=== PATIENT | male | born 1970 | race Caucasian/White ===

== ENCOUNTER 2017-06-12 14:37 | Observation (INO) | payer OTHER ==
--- NOTE | 2017-06-12 14:58 | EDPHY ---
H & P Time Seen by Provider: 06/12/17 14:54 HPI/ROS: Chief complaint. Low blood pressure, dizzy, shortness of breath, muscle spasm HPI. 46-year-old male presents with complaint of not feeling well since last evening. He had some nausea and some lightheadedness last evening. It went away and he slept well during the night. He had similar symptoms including lightheadedness on standing today. He went to urgent care and his blood pressure was 90/65 and was referred to the emergency department. He notes he has slight shortness of breath without cough. Slight URI symptoms with runny nose and slight sore throat for the past several days. Denies chest discomfort. Yesterday he had mid abdominal bloating but otherwise denies pain. No pain or discomfort today. He has been constipated. Denies fever. No urinary symptoms. No recent travel or known exposures. He also has some muscle achiness ROS Constitutional. no fever/chills, no weakness Eyes. no problems with vision ENT. Sore throat and upper respiratory symptoms Cardiovascular. no chest pain Respiratory. Slight shortness of breath but no cough Abdominal. Bloating yesterday with nausea but no vomiting or diarrhea . no problems urinating MS. Muscle aches Skin. no rash Lymph. no swollen glands Neuro. Lightheadedness on standing. Past Medical/Surgical History: Past medical history significant for recovering alcoholic, PTSD, anxiety, atrial fibrillation with ablation Social History: , nonsmoker, no alcohol Smoking Status: Former smoker Physical Exam: General Appearance: Alert well-developed male mild distress vital signs are stable. Initial blood pressure 113/85. Afebrile Eyes: Pupils equal and round no pallor or injection. ENT, mucous membranes are moist. Pharynx without injection. Tympanic membranes are normal. Respiratory: There are no retractions, lungs are clear to auscultation. Cardiovascular: Regular rate and rhythm. Gastrointestinal: Abdomen is soft and nontender, no masses, bowel sounds normal. Neurological: Awake and alert, sensory and motor exams grossly normal. Skin: Warm and dry, no rashes. Musculoskeletal: Neck is supple nontender. Extremities symmetrical, full range of motion. Psychiatric: Patient is oriented X 3, there is no agitation. Constitutional: Initial Vital Signs Temperature (C) 36.9 C 06/12/17 14:44 Heart Rate 72 06/12/17 14:44 Respiratory Rate 18 06/12/17 14:44 Blood Pressure 113/85 H 06/12/17 14:44 O2 Sat (%) 96 06/12/17 14:44 O2 Delivery Mode Room Air Allergies/Adverse Reactions: diphenhydramine HCl [From Benadryl] Allergy (Verified 10/26/11 11:48) metoprolol Allergy (Verified 10/26/11 11:48) Home Medications: Medication Instructions Recorded Cephalexin [Keflex] 500 mg PO QID 10 Days cap 10/26/11 FLUoxetine HCL [Fluoxetine DR 90mg] 25 mg PO 10/26/11 LORazepam [Ativan 1 mg (RX)] 1 mg PO 10/26/11 oxyCODONE/APAP 5/325 [Percocet 1 tab PO Q6 #10 tab 10/26/11 5/325] Amoxicillin/Clavulanate Pot 875 mg PO BID #20 tab 03/22/13 [Augmentin 875 MG TAB (RX)] FLUoxetine [Prozac] 0 mg PO DAILY 03/22/13 Hydrocodone/APAP 5/325 [[place] 1 - 2 each PO Q4-6PRN PRN #20 tab 03/22/13 5/325] LORazepam [Ativan 1 mg (RX)] 0 mg PO 03/22/13 Hydrocodone/APAP 5/325 [[place] 1 - 2 tab PO Q6H PRN #14 tab 01/19/16 5/325 (*)] Medical Decision Making - Diagnostics EKG Interpretation: EKG interpreted by me shows normal sinus rhythm with normal interval and axis. QRS is normal there is no significant ST elevation or depression. There is no arrhythmia. The rate is 62 Imaging Results: Imaging Impressions Abdomen X-Ray 06/12/17 15:32 Impression: 1. Nonspecific bowel gas pattern. 2. Lower lumbar degenerative disk disease. Chest X-Ray 06/12/17 15:32 Impression: Subtle fullness in the region of the ascending thoracic aorta and aortic arch, consider CT chest with contrast to exclude aneurysm. Results discussed with Dr. Dennys Ceron at 4:20 PM. Chest/Thorax CTA 06/12/17 16:26 Impression: 1. Small volume left upper lobe pulmonary embolus. 2. Mild aneurysmal dilatation of the ascending thoracic aorta up to 4.0 cm at the level of the right pulmonary artery. Results called to Dr. Dennys Ceron at 6:00 PM. One-view chest reviewed by me and discussed with Dr. López shows that there is fullness to the aortic knob, right tracheal displacement and fullness to the right hilum. This is different than chest x-ray in 2006. Concern is aortic aneurysm Upright abdomen shows no evidence for free air or air-fluid levelshere is moderate constipation present CT shows left upper lobe filling defect consistent with PE. He also has a 4 cm aneurysmal dilatation of the base of the aorta. CT reviewed by me and discussed with Dr. López Procedures: Repeat blood pressure is taken and it is 120/80 IV normal saline, monitor ED Course/Re-evaluation: Re-evaluation 4:25 p.m.. The patient and I discussed imaging and lab results. We discussed recommendation for chest CT looking for aortic aneurysm. He expresses understanding and agreement IM Mortezax. Re-evaluation at 6:20 p.m.. Patient and I discussed imaging and lab results. We discussed treatment plan including recommendation for admission. He expresses understanding and agreement I consulted and discussed case with Dr. orin murphy, hospitalist who will see the patient in the emergency department I consulted and discussed the case with Dr. Solorio, cardiology who will see the patient. Echocardiogram is ordered Differential Diagnosis: It appears the patient has a new diagnosis of and aneurysm of the proximal aorta. He also has apparent left upper lobe pulmonary embolus. Patient's presenting symptoms were hypotension and some shortness of breath. Symptoms could be consistent with both pulmonary embolus well as new aortic aneurysm. - Data Points Laboratory Results: Laboratory Results 06/12/17 15:10 06/12/17 15:10 06/12/17 06/12/17 06/12/17 15:10 15:10 15:10 WBC 7.54 10^3/uL 10^3/uL (3.80-9.50) RBC 5.83 10^6/uL 10^6/uL (4.40-6.38) Hgb 16.9 g/dL g/dL (13.7-17.5) Hct 49.0 % % (40.0-51.0) MCV 84.0 fL fL (81.5-99.8) MCH 29.0 pg pg (27.9-34.1) MCHC 34.5 g/dL g/dL (32.4-36.7) RDW 12.6 % % (11.5-15.2) Plt Count 361 10^3/uL 10^3/uL (150-400) MPV 9.1 fL fL (8.7-11.7) Neut % (Auto) 63.0 % % (39.3-74.2) Lymph % (Auto) 27.9 % % (15.0-45.0) Coke % (Auto) 8.1 % % (4.5-13.0) Eos % (Auto) 0.0 % L % (0.6-7.6) Baso % (Auto) 0.7 % % (0.3-1.7) Nucleat RBC Rel Count 0.0 % % (0.0-0.2) Absolute Neuts (auto) 4.76 10^3/uL 10^3/uL (1.70-6.50) Absolute Lymphs (auto) 2.10 10^3/uL 10^3/uL (1.00-3.00) Absolute Monos (auto) 0.61 10^3/uL 10^3/uL (0.30-0.80) Absolute Eos (auto) 0.00 10^3/uL L 10^3/uL (0.03-0.40) Absolute Basos (auto) 0.05 10^3/uL 10^3/uL (0.02-0.10) Absolute Nucleated RBC 0.00 10^3/uL 10^3/uL (0-0.01) Immature Gran % 0.3 % % (0.0-1.1) Immature Gran # 0.02 10^3/uL 10^3/uL (0.00-0.10) PT 13.7 SEC SEC (12.0-15.0) INR 1.03 (0.83-1.16) APTT 28.0 SEC SEC (23.0-38.0) D-Dimer 0.40 ug/mLFEU ug/mLFEU (0.00-0.50) Sodium 145 mEq/L H mEq/L (134-144) Potassium 4.6 mEq/L mEq/L (3.5-5.2) Chloride 100 mEq/L mEq/L (97-110) Carbon Dioxide 32 mEq/l H mEq/l (22-31) Anion Gap 13 mEq/L mEq/L (8-16) BUN 13 mg/dL mg/dL (7-23) Creatinine 1.0 mg/dL mg/dL (0.7-1.3) Estimated GFR > 60 Glucose 90 mg/dL mg/dL (70-100) Calcium 9.6 mg/dL mg/dL (8.5-10.4) Creatine Kinase 52 IU/L IU/L (0-224) Troponin I < 0.012 ng/mL ng/mL (0.000-0.034) Medications Given: Discontinued Medications Sodium Chloride (Ns) 1,000 mls @ 0 mls/hr IV EDNOW ONE; Wide Open PRN Reason: Protocol Stop: 06/12/17 15:05 Last Admin: 06/12/17 15:15 Dose: 1,000 mls Departure - Departure Disposition: [facility] Inpatient Acute Clinical Impression: Aortic aneurysm Qualifiers: Aortic location: thoracic aorta Presence of rupture: without rupture Qualified Code(s): I71.2 - Thoracic aortic aneurysm, without rupture Pulmonary embolus Qualifiers: Pulmonary embolism type: other Chronicity: acute Acute cor pulmonale presence: without acute cor pulmonale Qualified Code(s): I26.99 - Other pulmonary embolism without acute cor pulmonale Condition: Fair Referrals: Guillermo Taylor MD [Primary Care Provider] - As per Instructions
[2017-06-12] MEDS ORDERED: NS 1,000 ML IV ONE (15:04)
--- NOTE | 2017-06-12 15:05 | CPEKG ---
Heart Rate: 62 RR Interval: 968 P-R Interval: 148 QRSD Interval: 80 QT Interval: 388 QTC Interval: 394 P [place]: 38 QRS [place]: -8 T Wave [place]: 42 EKG Severity - NORMAL ECG - EKG Impression: SINUS RHYTHM Electronically Signed By: Tres Caruso 12-Jun-2017 15:16:30
[2017-06-12 15:27] LABS: % IMMATURE GRANULYOCYTES 0.3 % (0.0-1.1); ABSOLUTE IMMATURE GRANULOCYTES 0.02 10^3/uL (0.00-0.10); ADD DIFF? NO; ADD MORPH? NO; ADD SCAN? NO; ATYPICAL LYMPHOCYTE FLAG 0 (0-99); FRAGMENT RBC FLAG 0 (0-99); HEMOGLOBIN 16.9 g/dL (13.7-17.5); LEFT SHIFT FLG 0 (0-99); LIPEMIA HEMOLYSIS FLAG 90 (0-99); MEAN CELL HEMOGLOBIN CONCENTR. 34.5 g/dL (32.4-36.7); MEAN PLATELET VOLUME 9.1 fL (8.7-11.7); PLATELET CLUMPS FLAG 0 (0-99); PLATELET COUNT 361 10^3/uL (150-400); RED BLOOD CELL COUNT 5.83 10^6/uL (4.40-6.38); RED CELL DISTRIBUTION WIDTH 12.6 % (11.5-15.2)
[2017-06-12 15:36] LABS: ANION GAP 13 mEq/L (8-16); CALCIUM 9.6 mg/dL (8.5-10.4); CARBON DIOXIDE 32 mEq/l (22-31); CHLORIDE 100 mEq/L (97-110); GLOMERULAR FILTRATION RATE > 60; GLUCOSE 90 mg/dL (70-100); POTASSIUM 4.6 mEq/L (3.5-5.2); SODIUM 145 mEq/L (134-144)
[2017-06-12 15:48] LABS: TROPONIN I < 0.012 ng/mL (0.000-0.034)
[2017-06-12 16:41] LABS: INR 1.03 (0.83-1.16); PROTIME(PATIENT) 13.7 SEC (12.0-15.0)
[2017-06-12] MEDS ORDERED: IOPAMIDOL (ISOVUE 370) 100 ML BTL IV ONE (17:07)
[2017-06-12] MEDS ORDERED: ENOXAPARIN 80 MG/0.8 ML SYR SC ONE (18:27)
[2017-06-12] MEDS ORDERED: ONDANSETRON 4 MG/2 ML VIAL IVP PRN (20:32)
[2017-06-12] MEDS ORDERED: ACETAMINOPHEN 325 MG TAB PO PRN (20:32)
[2017-06-12] MEDS ORDERED: ONDANSETRON DISINTEGRATING 4 MG TAB PO PRN (20:32)
[2017-06-12] MEDS: LORazepam 1 MG TAB PO PRN (21:30)
--- NOTE | 2017-06-12 21:46 | GHP ---
[f rep st] HISTORY AND PHYSICAL DATE OF ADMISSION: 06/12/2017 CHIEF COMPLAINT: Chest pain, shortness of breath. HISTORY OF PRESENT ILLNESS: A 46-year-old male recovering alcoholic (sober nearly 2 years), remote history of atrial fibrillation status post ablation, presenting with lightheadedness, shortness of breath, and chest discomfort. He reports approximately 1 week ago, he had a heaviness in his left shoulder, but assumed that it was more related to his workouts. 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 Last night, he had an odd sensation, but was unable to describe why he felt weird. Had a sense that his sugar was low, but after eating he did not feel any better. This morning, he work up with dyspnea on exertion and some lightheadedness. The implication was that he was sexually active and had these symptoms then, although he did not overtly verbalize this. He denies any overt chest pain, but then reports that his shoulder pain radiated into his chest. It similar to his AFib, but is unlike the AFib in that it did not get better with vagal maneuvers or caffeine. He denies swelling in legs, but has increased sweatiness in his feet, and smelliness in his socks. He has had some bilateral discomfort in his legs, but no necessarily in the back of his calves. He denies any new supplements, new medications, increased anxiety for any reason. He denies atrial fibrillation type palpitations. Has not taken any medication for this in years. AFib: History of ablation. Was told to take aspirin, but he has not been taking it. He never gets symptoms, and does not follow with Cardiology anymore. Anxiety: He has chronic anxiety, particularly PTSD after his AFib ablation, in which he had a traumatic extubation, laryngospasm, and since then has had some PTSD. He takes fluoxetine 20 mg every day and lorazepam 1 mg tablets 2 to 3 times daily, depending on his day. He primarily takes lorazepam for PTSD, although it did help him get off alcohol. His last drink was approximately September 2015. ROS: No, BOWERS, visual changes, rhinorrhea, hearing changes, nausea, vomiting, diarrhea, constipation,new numbness, weakness, bruising, bleeding, new allergies , rash or other new symptoms except as noted above. PAST MEDICAL HISTORY: PTSD, CHERELLE, alcohol abuse (in remission), generalized anxiety disorder, AFib, nephrolithiasis, and Peyronie disease. PAST SURGICAL HISTORY: Notable for collar bone repair, varicocele repair, appendectomy, AFib ablation in 2010. 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 FAMILY HISTORY: Father was an alcoholic. Also of a brain tumor. Also had thyroid disease. MEDICATIONS: Fluoxetine, ibuprofen p.r.n., lorazepam p.r.n. ALLERGIES: Amoxicillin, Benadryl, Lopressor, trazodone. PHYSICAL EXAMINATION: VITAL SIGNS: 132/82, HR 76, O2 sat 96% on RA, 37.0. GENERAL: Pleasant, in no acute distress, very chatty, sitting up in bed, comfortable. NECK: No JVD. No thyromegaly. HEENT: Pupils equal and reactive, approximately 4 mm. No sclerae injection or pallor. No icterus. CARDIOVASCULAR: Regular. No murmurs, rubs or gallops. RESPIRATORY: CTA bilaterally. ABDOMEN: Nontender, nondistended, normal BS. NEUROLOGIC: Moving all extremities normally. Facial symmetry. EXTREMITIES: No lower extremity edema, no calf tenderness or pain on ankle flexion. No swelling. Normal BP and PT pulses bilaterally. SKIN: No skin rashes, or signs or drug use. LABORATORY DATA: CBC: Grossly normal. Coagulation studies notable for D- dimer 0.4 (normal). INR 1.03, PTT normal at 28. Chemistry notable for sodium 145, creatinine 1.0, CO2 32. Troponin < 0.012. Chest x-ray: Personally reviewed Slight rightward shift of airway. Radiologist read this as suggestive of possible aneurysm. Followup CTA shows small volume left upper extremity PE, mild aneurysmal dilation of 4 cm in the right pulmonary artery. EKG, personally reviewed, normal sinus rhythm. Irving record personally reviewed. ASSESSMENT: A 46-year-old man with a remote history of alcohol abuse and a remote history of atrial fibrillation status post ablation, presenting with 1 week of left upper extremity discomfort, and 1 day of shortness of breath, lightheadedness, found to have left upper lobe pulmonary embolism despite negative D-dimer. EKG so far normal. PLAN: 1. Pulmonary embolism: No obvious cause for PE. No underlying cancer noted, nonsmoking, no supplements. Patient started on Lovenox 80 units subcu b.i.d. Will plan to initiate NOAC in the morning after cards consult. Given no family history of blood clots, doubt there is an inherited component, but PCP may want to work this up in the future. I discussed with patient he would need at least six months of treatment, and they can determine followup at his primary care's office. 2. Aortic aneurysm 4 cm: Cardiology has been called and will consult in the morning. Given normal D-dimer and no evidence of dissection on CT, felt comfortable starting on low molecular weight heparin. Blood pressure was within reasonable control, so need to increase medication at this time, although he may want to be even lower than usual. His outpatient readings are usually 100-120/70-80. This was reviewed from 2014 to 2017. 3. PTSD/anxiety: Continue fluoxetine and lorazepam. 4. COPD/CPAP: Asked patient to bring in his home machine for tonight. 5. History of alcoholism. Reinforced with patient that it is critical that he continues to stay off alcohol, given his aneurysm. 6. Code status: Full code. Patient reported that if anything happened to him , he would trust his [id number] to make decisions for him, named Joceline Sosa. DISPOSITION: Pending further evaluation by Cardiology and successful anticoagulation (patient tolerating it well). It is possible that he could get discharged in 1 to 2 day, although we will follow. Copy requested to: Guillermo Taylor MD /[id number]/MODL MTDD
[2017-06-13] MEDS ORDERED: MELATONIN 3 MG TAB PO PRN (02:22)
[2017-06-13 04:06] LABS: ADD DIFF? NO; ADD MORPH? NO; ADD SCAN? NO; ATYPICAL LYMPHOCYTE FLAG 0 (0-99); FRAGMENT RBC FLAG 0 (0-99); HEMATOCRIT 43.8 % (40.0-51.0); HEMOGLOBIN 15.2 g/dL (13.7-17.5); LEFT SHIFT FLG 0 (0-99); LIPEMIA HEMOLYSIS FLAG 90 (0-99); MEAN CELL HEMOGLOBIN 29.2 pg (27.9-34.1); MEAN CELL HEMOGLOBIN CONCENTR. 34.7 g/dL (32.4-36.7); MEAN CELL VOLUME 84.1 fL (81.5-99.8); MEAN PLATELET VOLUME 8.9 fL (8.7-11.7); PLATELET CLUMPS FLAG 0 (0-99); PLATELET COUNT 292 10^3/uL (150-400); RED BLOOD CELL COUNT 5.21 10^6/uL (4.40-6.38); RED CELL DISTRIBUTION WIDTH 12.6 % (11.5-15.2)
[2017-06-13 04:14] LABS: INR 1.14 (0.83-1.16); PROTIME(PATIENT) 14.8 SEC (12.0-15.0)
[2017-06-13 04:15] LABS: APTT 30.5 SEC (23.0-38.0)
[2017-06-13] MEDS ORDERED: ENOXAPARIN 80 MG/0.8 ML SYR SC SCH (08:00)
[2017-06-13] MEDS ORDERED: FLUoxetine 20 MG CAP PO SCH (09:00)
[2017-06-13 09:29] VITALS: RESP 18
--- NOTE | 2017-06-13 09:33 | ECHO ---
[email or web address] [address] [address] Main: [phone] Fax: Transthoracic Echocardiogram Name: RADHA LEBLANC MR#: [id number] Study Date: 06/12/2017 Study Time: 07:32 PM Date of : 1970 Age: 46 year(s) Height: 188 cm (74 in.) Weight: 81.65 kg (180 lb.) BSA: 2.08 m2 Gender: Male Examination: Echo Indication: Chest Pain Image Quality: Adequate Contrast: Requested by: Dennys Ceron BP: / Heart Rate: Rhythm: Indication: Chest Pain Procedure Staff Customs Port Director: Kaylynn Verde Reading Physician: Victor M Velázquez Requesting Provider: Maddy Tran Conclusions: Normal size left ventricle. No LV hypertrophy. Normal global systolic LV function. EF is 70 %. Normal diastolic LV function. There is no significant mitral valve regurgitation. There is no aortic valve regurgitation. There is no significant tricuspid valve regurgitation. There is no pulmonic regurgitation seen. Measurements: Chambers Valvular Assessment AV/MV Valvular Assessment TV/PV Normal Normal Normal Name Value Range Name Value Range Name Value Range IVSd (2D): 1.0 cm (0.6 cm-1.1 AV Vmax: 1.29 m/s (1 m/s-1.7 PV Vmax: 0.89 m/s (0.6 m/s-0.9 cm) m/s) m/s) LVDd (2D): 4.6 cm (4.2 cm-5.9 AV maxP mmHg ( - ) PV PGmax: 3 mmHg ( - ) cm) AV meanP mmHg ( - ) LVDs (2D): 3.1 cm (2.1 cm-4 LVOT Vmax: 1.16 m/s (0.7 m/s-1.1 cm) m/s) LVPWd (2D): 1.0 cm (0.6 cm-1 MV E Vmax: 0.66 m/s ( - ) cm) MV A Vmax: 0.60 m/s ( - ) LVEF (BP): 70 % (>=55 %) MV E/A: 1.10 ( - ) Continued Measurements: Chambers Valvular Assessment AV/MV Name Value Name Value LADs Lon.0 cm MV DecTime: 268 m/s Patient: RADHA LEBLANC Study Date: 06/12/2017 Page 1 of 2 07:32 PM LA Area: 14.4 cm2 MV E/E' Septal: 9.60 LA Volume: 42 ml MV E/E' Lateral: 6.00 LA Volume Index: 20.2 ml/m2 TAPSE: 1.6 cm RA Area: 17.0 cm2 Additional Vessels Name Value Inferior Vena Cava: 1.8 cm Findings: Left Ventricle: Normal size left ventricle. No LV hypertrophy. Normal global systolic LV function. EF is 70 %. No regional wall motion abnormality. Normal diastolic LV function. Right Ventricle: Normal size right ventricle. Normal RV function. Left Atrium: The left atrium is normal in size. Right Atrium: The right atrium is normal in size. Mitral Valve: The mitral valve is normal in appearance and function. There is no significant mitral valve regurgitation. No mitral stenosis is present. Aortic Valve: The aortic valve is normal in appearance and function. There is no aortic valve regurgitation. No aortic valve stenosis is present. Tricuspid Valve: The tricuspid valve is normal in appearance and function. There is no significant tricuspid valve regurgitation. Pulmonic Valve: Pulmonary valve not well visualized. There is no pulmonic regurgitation seen. IVC: There is greater johanny 50% respiratory excursion. Pericardium: No pericardial effusion. (No Signature Object) Patient: RADHA LEBLANC Study Date: 06/12/2017 Page 2 of 2 07:32 PM [id number]
[2017-06-13] MEDS: LORazepam 1 MG TAB PO PRN ×2 (09:36→13:06)
--- NOTE | 2017-06-13 12:18 | GCON ---
[f rep st] CONSULTATION CARDIOLOGY CONSULTATION DATE OF CONSULTATION: 06/13/2017 REFERRING PHYSICIAN: Aimee Mart MD REASON FOR CONSULTATION: Chest pain and history of atrial fibrillation. HISTORY: Mr. Sosa is a 46-year-old male who presents with a 1-week history of intermittent chest d iscomfort, lightheadedness, and dyspnea on exertion. Because of the recurrent nature of his symptoms , he had concerns based on his previous cardiac history. He presented to the Emergency Room for eval uation. His initial troponin was normal. His ECG was unremarkable. However, a CT pulmonary angiogr am demonstrated a left upper lobe pulmonary embolus. He did not demonstrate any significant tachycar gopi or hypoxia. An initial blood pressure at Urgent Care was low with a systolic pressure of 95 mmHg . However, all of his subsequent blood pressures have been normal. He has been monitored overnight and has not had any significant arrhythmia. PAST MEDICAL HISTORY: He has a history of atrial fibrillation for which he underwent an ablation pro cedure in 2009, at a hospital in [place] while he was under the care of the [facility]. He has not had any subsequent atrial fibrillation episodes. He is not on any cardiac me dications. He has no history of hypertension, type 2 diabetes, or hyperlipidemia. He has issues of PTSD and anxiety related to an episode of laryngospasm and flash pulmonary edema when he was being tr eated for his atrial fibrillation. MEDICATIONS: His only medications are fluoxetine and lorazepam. ALLERGIES: He reports allergies to diphenhydramine and metoprolol. He says he also had difficulty w ith warfarin. 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 He exercises regularly. There is a history of former tob acco use and significant alcohol abuse, both of which were stopped a couple of years ago. FAMILY HISTORY: Noncontributory. REVIEW OF SYSTEMS: Apart from the issues mentioned in the history of present illness, a 10-point rev iew was negative. PHYSICAL EXAMINATION: VITAL SIGNS: Heart rate in the 70s with sinus rhythm on the monitor. Blood p ressure 101/75, room air O2 saturation 93%. HEAD AND NECK: No scleral icterus. Mucous membranes mo ist. Carotid pulses 2+ without bruits. There is no JVD. CHEST: Lung barnett clear to auscultation. CARDIAC: Regular rate and rhythm with a normal S1 and S2. There is no murmur or gallop. ABDOMEN: Soft, nondistended, nontender with normal bowel sounds. EXTREMITIES: 2+ pulses and no peripheral edema. LABORATORY STUDIES: His troponin in the Emergency Room was less than 0.012. Sodium 145, potassium 4 .6, BUN and creatinine 13 and 1.0. His CBC is normal. ECG: His ECG demonstrated normal sinus rhythm. No Q-waves or conduction system disturbances. No is chemic changes. ECHOCARDIOGRAM: An echocardiogram performed in the Emergency Room last night, demonstrated normal le ft ventricular size with an ejection fraction of 70%. He had normal-appearing valvular structures wi th normal function. IMPRESSION: This is a 46-year-old male with a history of atrial fibrillation previously treated with an ablation procedure. He has no history of coronary artery disease, valvular heart disease, or con gestion heart failure. He has a low risk profile for coronary disease and exercises regularly withou t symptoms or limitations. He presents with atypical chest discomfort, dyspnea on exertion, elevated heart rate with activity, and lightheadedness. He has not demonstrated any significant hemodynamic derangements. His echocardiogram demonstrates a structurally normal heart. He was found to have a l eft upper lobe pulmonary embolus. He did have transoceanic airline flights several weeks ago. RECOMMENDATIONS: I would plan on starting the patient on a direct oral anticoagulant. At that point , he could be discharged from the hospital later today since he does not have a large volume pulmonar y embolism and does not demonstrate any hemodynamic compromise. Would consider outpatient stress kim ting. Will request a lower extremity ultrasound to assess for any residual deep vein thrombosis. /[id number]/MODL
[2017-06-13 12:51] VITALS: BP 133/82; PULSE 69; TEMP 98.1; O2SAT 97
[2017-06-13 12:58] LABS: CHOLESTEROL 289 mg/dL (140-200); CHOLESTEROL/HDL RATIO 5.78 RATIO (1.00-4.97); HIGH DENSITY LIPOPROTEIN 50 mg/dL (40-65); LDL/HDL RATIO 3.98 RATIO (1.00-3.64); LOW DENSITY LIPOPROTEIN 199 mg/dL (70-100); NON-HIGH DENSITY LIPOPROTEIN 239 mg/dL (90-129); TRIGLYCERIDE 204 mg/dL (40-150); VERY LOW DENSITY LIPOPROTEINS 40 mg/dL (8-25)
--- NOTE | 2017-06-13 15:40 | PDDCSUM ---
Discharge Summary Discharge Summary: HPI/Hospital Course 46 yo male admitted for Left upper lobe PE's. He recently had a transatlantic plane trip. TTE is unremarkable. He is not hypoxic. He is no longer having CP or discomfort. Doppler LE is normal. He was started on Lovenox SC and is now being transitioned to Xarelto. He will get a script for 15mg PO BID x 21 days and will need to f/u with his pcp next week for transition to once daily dosing. He should be treated for 3-6 months. Etiology is unclear. Consultants: cards DDX: -Acute PE -Ascending thoracic aortic aneurysm measuring 4 cm. Will need surveillance. BP mgmt is adequate, no medications started -Dizziness, improving Exam: NAD AAOX3 RRR CTA B S/NT/ND AAOX3 MEDS: SEE MED REC F/U: WITH PCP IN 1-2 WEEKS.
--- NOTE | 2017-06-13 16:43 | ASDISCHSUM ---
Discharge Information Plan Status:Home with No Needs Medically Cleared to Leave:06/12/2017 Discharge Date:06/13/2017 04:11 PM CM D/C Disposition:Home, Routine, Self-Care ADT D/C Disposition:Home, Routine, Self-Care Projected Discharge Date:06/13/2017 12:00 AM Transportation at D/C:Family Discharge Delay Reason: Follow-Up Date:06/13/2017 12:00 AM Discharge Slot: Final Diagnosis: CP, Carmen Alvarez Placement Information Patient Contact Information Contact Name:CLARA Relationship: Address:[address] Work Phone: Sara:LUDY Richey Phone: [facility]/Zip Code:[place] [address] Email: Financial Information Financial Class:[facility] Primary Plan Desc:[facility] Primary Plan Number:[id number] Secondary Plan Desc: Secondary Plan Number: Assessment Information Case Management Discharge Plan Note Case Management Discharge Discharge Order Complete? Answers: Yes Patient to Obtain Answers: Independently Medications Transportation Arranged Answers: Family/Friends Transport will Pick (Date 06/13/2017 12:00 AM & Time) Family Notified Answers: Yes Notes: Family to transport Discharge Comments Notes: 46 year old male admitted for CP, L LILIANE CAZARES's recent plane trip. No longer having symptoms. Discharged to follow up with PCP. Date Signed: 06/13/2017 04:42 PM Electronically Signed By:Ericka Ingram LCSW Intervention Information
== END 2017-06-13 16:11 | disposition home or self-care (01) ==
LOC: INTOOBSV 18:34 → F2W 21:00
PROVIDERS: ADMIT Internal Medicine Geriatric Medicine; ATTEND Internal Medicine Geriatric Medicine
DX: I26.99 Other pulmonary embolism without acute cor pulmonale (principal); I71.2 Thoracic aortic aneurysm, without rupture; R42 Dizziness and giddiness; F10.21 Alcohol dependence, in remission; F41.8 Other specified anxiety disorders; G47.33 Obstructive sleep apnea (adult) (pediatric); F43.10 Post-traumatic stress disorder, unspecified; Z87.891 Personal history of nicotine dependence; Z86.79 Personal history of other diseases of the circulatory system
CPT/HCPCS: 71010; 71275; 74000; 93005; 93306; 93970; G0378; J1650; Q9967

== ENCOUNTER 2017-06-19 18:51 | Emergency (ER) | payer OTHER ==
[2017-06-19] MEDS ORDERED: ONDANSETRON 4 MG/2 ML VIAL ONE (19:44)
[2017-06-19] MEDS ORDERED: NS 1,000 ML IV ONE (19:58)
[2017-06-19 20:02] LABS: % IMMATURE GRANULYOCYTES 0.1 % (0.0-1.1); ABSOLUTE IMMATURE GRANULOCYTES 0.01 10^3/uL (0.00-0.10); ADD DIFF? NO; ADD MORPH? NO; ADD SCAN? NO; ATYPICAL LYMPHOCYTE FLAG 0 (0-99); FRAGMENT RBC FLAG 0 (0-99); HEMATOCRIT 45.2 % (40.0-51.0); HEMOGLOBIN 15.9 g/dL (13.7-17.5); LEFT SHIFT FLG 0 (0-99); LIPEMIA HEMOLYSIS FLAG 90 (0-99); MEAN CELL HEMOGLOBIN 29.3 pg (27.9-34.1); MEAN CELL HEMOGLOBIN CONCENTR. 35.2 g/dL (32.4-36.7); MEAN CELL VOLUME 83.4 fL (81.5-99.8); MEAN PLATELET VOLUME 9.1 fL (8.7-11.7); PLATELET CLUMPS FLAG 20 (0-99); PLATELET COUNT 329 10^3/uL (150-400); RED BLOOD CELL COUNT 5.42 10^6/uL (4.40-6.38); RED CELL DISTRIBUTION WIDTH 12.5 % (11.5-15.2)
--- NOTE | 2017-06-19 20:02 | EDPHY ---
H & P Stated Complaint: Feels lightheaded,nauseated Time Seen by Provider: 06/19/17 19:41 HPI/ROS: CHIEF COMPLAINT: Fatigue, palpitations, presyncope HISTORY OF PRESENT ILLNESS: The patient is a 46-year-old man with a remote history of AFib post ablation who was admitted to the hospital last week after a transatlantic flight and had developed a left upper lobe pulmonary embolism. He was started on Xarelto. He is also discovered to have a ascending aortic aneurysm of 4 cm. The patient states that he did well and went home on Wednesday. He has continued to have mild shortness of breath throughout this entire week. Today however he was doing some light housekeeping around the house when he felt suddenly lightheaded, palpitations, nausea in like he was weak in his legs. He denies chest pain or back pain. He denies recent fevers. He denies injuries. This began around 4 hr ago. He went to lay down and taking Xanax because he has a history of PTSD. This did not help. He states that he still feels fatigued and lightheaded. He no longer has a palpitation. He denies any chest pain. REVIEW OF SYSTEMS: Constitutional: denies: chills, fever, recent illness, recent injury EENTM: denies: blurred vision, double vision, nose congestion Respiratory: denies: cough, shortness of breath Cardiac: denies: chest pain, irregular heart rate, lightheadedness, palpitations Gastrointestinal/Abdominal: denies: abdominal pain, diarrhea, nausea, vomiting, blood streaked stools Genitourinary: denies: dysuria, frequency, hematuria, pain Musculoskeletal: denies: joint pain, muscle pain Skin: denies: lesions, rash, jaundice, bruising Neurological: denies: headache, numbness, paresthesia, tingling, dizziness, weakness Hematologic/Lymphatic: denies: blood clots, easy bleeding, easy bruising Immunologic/allergic: denies: HIV/AIDS, transplant EXAM: GENERAL: Well-appearing, well-nourished and in no acute distress. HEAD: Atraumatic, normocephalic. EYES: Pupils equal round and reactive to light, extraocular movements intact, sclera anicteric, conjunctiva are normal. ENT: TMs normal, nares patent, oropharynx clear without exudates. Moist mucous membranes. NECK: Normal range of motion, supple without lymphadenopathy or JVD. LUNGS: Breath sounds clear to auscultation bilaterally and equal. No wheezes rales or rhonchi. HEART: Regular rate and rhythm without murmurs, rubs or gallops. ABDOMEN: Soft, nontender, normoactive bowel sounds. No guarding, no rebound. No masses appreciated. BACK: No CVA tenderness, no spinal tenderness, step-offs or deformities EXTREMITIES: Normal range of motion, no pitting or edema. No clubbing or cyanosis. NEUROLOGICAL: Cranial nerves II through XII grossly intact. Normal speech, normal gait. 5/5 strength, normal movement in all extremities, normal sensation PSYCH: Normal mood, normal affect. SKIN: Warm, dry, normal turgor, no visible rashes or lesions. Source: Patient Exam Limitations: No limitations - Personal History Tetanus Vaccine Date: 2004 - Medical/Surgical History Hx Asthma: No Hx Chronic Respiratory Disease: No Hx Diabetes: No Hx Cardiac Disease: Yes Hx Renal Disease: No Hx Cirrhosis: No Hx Alcoholism: No Hx HIV/AIDS: No Hx Splenectomy or Spleen Trauma: No Other PMH: Afib w/ ablation, ANXIETY, ptsd, CHERELLE - Family History Significant Family History: No pertinent family hx - Social History Smoking Status: Former smoker Alcohol Use: Sober Drug Use: None Constitutional: Initial Vital Signs Temperature (C) 37 C 06/19/17 19:00 Heart Rate 84 06/19/17 19:00 Respiratory Rate 18 06/19/17 19:00 Blood Pressure 114/87 H 06/19/17 19:00 O2 Sat (%) 97 06/19/17 19:00 O2 Delivery Mode Room Air Allergies/Adverse Reactions: diphenhydramine HCl [From Benadryl] Allergy (Unknown, Verified 06/19/17 18:59) metoprolol Allergy (Verified 06/19/17 18:59) Home Medications: Medication Instructions Recorded LORazepam [Ativan (*)] 1 mg PO TID PRN 10/26/11 FLUoxetine [Prozac 20 MG (*)] 20 mg PO DAILY 03/22/13 Rivaroxaban [Xarelto 15mg (*)] 15 mg PO DAILY #42 tab 06/13/17 Medical Decision Making - Diagnostics EKG Interpretation: An EKG obtained and was read and documented in trace view. Please see trace view for full reading and report. Sinus rhythm, no acute ischemic changes, similar to previous Imaging: Discussed imaging studies w/ scallop binder Radiologist ED Course/Re-evaluation: We discussed the CT and lab results which are very reassuring. The patient is currently asymptomatic. He is fatigued. He thinks this may be due to the medication he took. His vital signs have been stable. No abnormalities on the monitor. I offered to admit him for his continued intermittent lightheadedness but he declined. He would prefer to go home and sleep. I gave him strict return precautions. His girlfriend is with him and agrees with the plan. 9:50 p.m. the patient is able to ambulate from the emergency department at any difficulty. Differential Diagnosis: Partial list of the Differential diagnosis considered include but were not limited to; pre syncope, arrhythmia, worsening PE and although unlikely based on the history and physical exam, I also considered infection, dissection, aneurysm, dehydration, infection, head bleed. I discussed these differential diagnoses and the plan with the patient as well as the usual and expected course. The patient understands that the diagnosis is provisional and that in medicine we are not always correct and that further workup is often warranted. Usual and customary warnings were given. All of the patient's questions were answered. The patient was instructed to return to the emergency department should the symptoms at all worsen or return, otherwise to followup with the physician as we discussed. - Data Points Laboratory Results: Laboratory Results 06/19/17 19:50 06/19/17 19:50 Medications Given: Discontinued Medications Sodium Chloride (Ns) 1,000 mls @ 0 mls/hr IV EDNOW ONE; Wide Open PRN Reason: Protocol Stop: 06/19/17 19:59 Last Admin: 06/19/17 20:02 Dose: 1,000 mls Ondansetron HCl (Zofran) 4 mg IVP EDNOW ONE Stop: 06/19/17 20:04 Last Admin: 06/19/17 20:05 Dose: 4 mg Departure - Departure Disposition: Home, Routine, Self-Care Clinical Impression: Pre-syncope Condition: Fair Instructions: Near Syncope (ED) Referrals: Guillermo Taylor MD [Primary Care Provider] - 1-2 days without fail ED,PHYSICIAN SWATI [Medical Doctor] - 1 day, if not improved
[2017-06-19] MEDS ORDERED: ONDANSETRON 4 MG/2 ML VIAL IVP ONE (20:03)
--- NOTE | 2017-06-19 20:12 | CPEKG ---
Heart Rate: 65 RR Interval: 923 P-R Interval: 160 QRSD Interval: 86 QT Interval: 408 QTC Interval: 425 P [place]: 43 QRS [place]: 7 T [place]: 53 EKG Severity - OTHERWISE NORMAL ECG - EKG Impression: SINUS RHYTHM EKG Impression: LOW VOLTAGE IN FRONTAL LEADS Electronically Signed By: Shiraz Cook 19-Jun-2017 20:18:08
[2017-06-19 20:15] LABS: INR 1.44 (0.83-1.16); PROTIME(PATIENT) 17.7 SEC (12.0-15.0)
[2017-06-19 20:16] LABS: APTT 24.1 SEC (23.0-38.0)
[2017-06-19 20:21] LABS: ANION GAP 15 mEq/L (8-16); CALCIUM 9.3 mg/dL (8.5-10.4); CARBON DIOXIDE 25 mEq/l (22-31); CHLORIDE 104 mEq/L (97-110); CREATININE 0.9 mg/dL (0.7-1.3); GLOMERULAR FILTRATION RATE > 60; GLUCOSE 102 mg/dL (70-100); POTASSIUM 4.5 mEq/L (3.5-5.2); SODIUM 144 mEq/L (134-144)
[2017-06-19 20:33] LABS: TROPONIN I < 0.012 ng/mL (0.000-0.034)
[2017-06-19] MEDS ORDERED: IOPAMIDOL (ISOVUE 370) 100 ML BTL IV ONE (20:39)
[2017-06-19 21:41] VITALS: BP 137/94; PULSE 79; RESP 16; TEMP 97.3; O2SAT 96
== END 2017-06-19 21:39 | disposition home or self-care (01) ==
DX: R55 Syncope and collapse (principal); E86.9 Volume depletion, unspecified; Z87.891 Personal history of nicotine dependence
CPT/HCPCS: 96374; J2405; Q9967